=== PATIENT | male | born 1945 | race Caucasian/White ===

== ENCOUNTER 2018-08-03 06:20 | Inpatient (IN) | payer MEDICARE, OTHER ==
--- NOTE | ~2018-08-03 | OP ---
PATIENT NAME: LUDIN PARNELL MEDICAL RECORD: [id number] :43 LOCATION:D.M3 D.1204 ADMISSION DATE:08/03/18 SURGEON: MIKE ÁLVAREZ MD DATE OF OPERATION: 08/09/2018 PREOPERATIVE DIAGNOSES: 1. Dysphagia. 2. History of cerebrovascular accident. 3. Coronary artery disease. 4. Hypertension. 5. Hyperlipidemia. POSTOPERATIVE DIAGNOSES: 1. Dysphagia. 2. History of cerebrovascular accident. 3. Coronary artery disease. 4. Hypertension. 5. Hyperlipidemia. PROCEDURE: PEG tube placement. SURGEON: Mike Álvarez MD REPORT OF PROCEDURE: The patient's abdomen was prepped and draped in sterile fashion. An Olympus endoscope was advanced through the mouth and esophagus and into the stomach. We found an area on the left upper quadrant of the stomach to house our PEG tube. A total of 5 cc of 1% lidocaine with epinephrine was infused into the surrounding tissues. An Angiocath needle was brought through the skin into the gastric lumen. A wire was advanced through this and the wire was grasped with an Endosnare. We pulled this through the mouth and esophagus and affixed it to the PEG tube. The PEG was pulled through the mouth and esophagus and through the gastric wall until it rested in good position at 6 cm at the skin. The endoscope was readvanced into the stomach and we could see that the PEG was in good position with no sign of any bleeding. COMPLICATIONS: None. CONDITION: Stable. ANESTHESIA: TIVA. BLOOD LOSS: Minimal. TRANSINT:[id number] Voice Confirmation ID: [id number] DOCUMENT ID: [id number] MIKE ÁLVAREZ MD CC: [id number] DICTATION DATE: 08/09/181455 FUNERAL CAR DRIVER: 08/10/18 0048 ADM IN [facility] [address] [place] [address]
[~2018-08-03 06:20] MED LIST: ASPIRIN EC81 M1 PO; BETAPACE 80 MG80 MG PO; DIOVAN320 MG PO; HYDROCHLOROTHIA25 MG GT; HYDROCODONE/APAP PO; LIPITOR40 MG PO; LISINOPRIL10 MG PO; VIAGRA100 MG PO
[2018-08-03] MEDS ORDERED: COZAAR100 MG PO (06:28)
[2018-08-03 06:40] LABS: BASOPHILS 0.3 % (0-2); EOSINOPHILS 3.3 % (0-7); HEMATOCRIT 41.9 % (42.0-54.0); HEMOGLOBIN 14.1 g/dL (13.5-17.5); IMMATURE GRANULOCYTES 0.1 % (0-5); LYMPHOCYTES 27.4 % (15-50); MCH 30.8 pg (26.0-34.0); MCHC 33.7 g/dL (31.0-37.0); MCV 91.5 fL (80.0-100.0); MEAN PLATELET VOLUME 11.8 fL (7.4-10.4); MONOCYTES 8.7 % (2-11); NEUTROPHILS 60.2 % (40-80); PLATELET COUNT 223 10x3/uL (130-400); RBC 4.58 10x6/uL (4.20-6.10); RDW 14.2 % (11.5-14.5); WBC 7.2 10x3/uL (4.8-10.8)
[2018-08-03 06:49] LABS: APTT 29.9 SECONDS (22.8-39.4); INR 1.04 (0.85-1.17); PROTIME 13.1 SECONDS (11.6-15.0)
[2018-08-03 06:54] LABS: ALBUMIN 3.6 g/dL (3.4-5.0); ALKALINE PHOSPHATASE 112 U/L (46-116); ALT (SGPT) 42 U/L (10-68); BILIRUBIN - TOTAL 1.09 mg/dL (0.2-1.3); CALC OSMOLALITY 291 mosm/kg (275-300); CALCIUM 8.7 mg/dL (8.5-10.1); CARBON DIOXIDE 25.8 mmol/L (21.0-32.0); CHLORIDE - SERUM 107 mmol/L (98-107); CREATININE - SERUM 1.2 mg/dL (0.6-1.3); POTASSIUM - SERUM 4.4 mmol/L (3.5-5.1); PROTEIN - SERUM 7.6 g/dL (6.4-8.2); SODIUM 143 mmol/L (136-145); UREA NITROGEN 21 mg/dL (7-18); eGFR NON AFRICAN AMERICAN 63 mL/min (90-120)
[2018-08-03 06:57] LABS: GLUCOSE 162 mg/dL (74-106)
[2018-08-03 07:05] LABS: CREATINE KINASE 58 UL (21-232); MAGNESIUM - SERUM 1.9 mg/dL (1.8-2.4); PRO BNP 1221 pg/mL (0-125); TROPONIN-I < 0.017 ng/mL (0.000-0.060)
[2018-08-03 07:23] VITALS: BP 148/70
[2018-08-03 08:14] VITALS: BP 135/75
[2018-08-03 09:32] VITALS: BP 135/75; BMI 36.0
[2018-08-03 10:12] LABS: CREATINE KINASE 59 UL (21-232); TROPONIN-I < 0.017 ng/mL (0.000-0.060)
[2018-08-03 11:26] VITALS: BMI 35.9
[2018-08-03 11:53] VITALS: BP 149/70
[2018-08-03 15:56] VITALS: BP 166/75
[2018-08-03 17:01] LABS: CKMB 1.8 U/L (0.0-3.6); CREATINE KINASE 77 UL (21-232); TROPONIN-I < 0.017 ng/mL (0.000-0.060)
[2018-08-03 20:28] VITALS: BP 143/71
[2018-08-03 21:35] LABS: CKMB 1.5 U/L (0.0-3.6); CREATINE KINASE 76 UL (21-232); TROPONIN-I 0.026 ng/mL (0.000-0.060)
[2018-08-04] VITALS (24 sets, daily range): BP systolic 137–205; BP diastolic 79–165
[2018-08-04 01:26] LABS: BASOPHILS 0.4 % (0-2); EOSINOPHILS 2.2 % (0-7); HEMOGLOBIN 14.7 g/dL (13.5-17.5); IMMATURE GRANULOCYTES 0.1 % (0-5); LYMPHOCYTES 19.2 % (15-50); MCH 30.4 pg (26.0-34.0); MCHC 34.2 g/dL (31.0-37.0); MEAN PLATELET VOLUME 11.8 fL (7.4-10.4); MONOCYTES 10.2 % (2-11); NEUTROPHILS 67.9 % (40-80); PLATELET COUNT 211 10x3/uL (130-400); RBC 4.83 10x6/uL (4.20-6.10)
[2018-08-04 01:38] LABS: ALBUMIN 3.9 g/dL (3.4-5.0); BILIRUBIN - TOTAL 1.5 mg/dL (0.2-1.3); CALCIUM 9.3 mg/dL (8.5-10.1); CARBON DIOXIDE 26.7 mmol/L (21.0-32.0); CREATININE - SERUM 1.2 mg/dL (0.6-1.3); INR 1.09 (0.85-1.17); POTASSIUM - SERUM 3.7 mmol/L (3.5-5.1); PROTEIN - SERUM 8.2 g/dL (6.4-8.2); PROTIME 13.6 SECONDS (11.6-15.0)
[2018-08-04 01:39] LABS: D-DIMER-QUANTITATIVE 2.95 ug/mLFEU (0.20-0.54)
[2018-08-04 05:10] LABS: BASOPHILS 0.2 % (0-2); EOSINOPHILS 1.4 % (0-7); HEMATOCRIT 41.5 % (42.0-54.0); HEMOGLOBIN 14.1 g/dL (13.5-17.5); IMMATURE GRANULOCYTES 0.1 % (0-5); LYMPHOCYTES 13.4 % (15-50); MCH 30.3 pg (26.0-34.0); MCV 89.2 fL (80.0-100.0); MONOCYTES 7.9 % (2-11); PLATELET COUNT 172 10x3/uL (130-400); RBC 4.65 10x6/uL (4.20-6.10); WBC 8.5 10x3/uL (4.8-10.8)
[2018-08-04 05:11] LABS: CALC OSMOLALITY 293 mosm/kg (275-300); CALCIUM 8.9 mg/dL (8.5-10.1); CARBON DIOXIDE 32.7 mmol/L (21.0-32.0); CHLORIDE - SERUM 105 mmol/L (98-107); GLUCOSE 137 mg/dL (74-106); POTASSIUM - SERUM 3.6 mmol/L (3.5-5.1); SODIUM 145 mmol/L (136-145); UREA NITROGEN 20 mg/dL (7-18); eGFR NON AFRICAN AMERICAN 78 mL/min (90-120)
[2018-08-04 14:21] LABS: APPEARANCE CLEAR (CLEAR); BILIRUBIN NEGATIVE (NEGATIVE); COLOR STRAW (YELLOW); GLUCOSE NEGATIVE (NEGATIVE); KETONE NEGATIVE (NEGATIVE); NITRITE NEGATIVE (NEGATIVE); PROTEIN NEGATIVE (NEGATIVE); SPECIFIC GRAVITY 1.015 (1.005-1.020)
[2018-08-05] VITALS (24 sets, daily range): BP systolic 140–197; BP diastolic 85–137
[2018-08-05 03:57] LABS: BASOPHILS 0.1 % (0-2); EOSINOPHILS 0.3 % (0-7); HEMATOCRIT 40.9 % (42.0-54.0); HEMOGLOBIN 14.1 g/dL (13.5-17.5); IMMATURE GRANULOCYTES 0.1 % (0-5); LYMPHOCYTES 9.9 % (15-50); MCH 30.9 pg (26.0-34.0); MCHC 34.5 g/dL (31.0-37.0); MCV 89.7 fL (80.0-100.0); MEAN PLATELET VOLUME 11.6 fL (7.4-10.4); MONOCYTES 8.9 % (2-11); NEUTROPHILS 80.7 % (40-80); PLATELET COUNT 202 10x3/uL (130-400); RBC 4.56 10x6/uL (4.20-6.10); RDW 13.8 % (11.5-14.5); WBC 10.4 10x3/uL (4.8-10.8)
[2018-08-05 04:11] LABS: CALC OSMOLALITY 286 mosm/kg (275-300); CALCIUM 8.3 mg/dL (8.5-10.1); CARBON DIOXIDE 30.8 mmol/L (21.0-32.0); CHLORIDE - SERUM 104 mmol/L (98-107); CHOLESTEROL, TOTAL 115 mg/dL (0-200); GLUCOSE 136 mg/dL (74-106); HDL CHOLESTEROL 29 mg/dL (32-96); LDL CHOLESTEROL 67 mg/dL (0-100); LDL-HDL RATIO 2.3 ratio (1.5-3.5); POTASSIUM - SERUM 3.5 mmol/L (3.5-5.1); SODIUM 142 mmol/L (136-145); TRIGLYCERIDE 96 mg/dL (30-200); UREA NITROGEN 17 mg/dL (7-18); eGFR NON AFRICAN AMERICAN 78 mL/min (90-120)
[2018-08-06] VITALS (24 sets, daily range): BP systolic 114–177; BP diastolic 81–144
[2018-08-06 04:43] LABS: BASOPHILS 0.2 % (0-2); EOSINOPHILS 2.1 % (0-7); HEMATOCRIT 43.5 % (42.0-54.0); HEMOGLOBIN 14.8 g/dL (13.5-17.5); IMMATURE GRANULOCYTES 0.2 % (0-5); LYMPHOCYTES 15.4 % (15-50); MCH 30.5 pg (26.0-34.0); MCV 89.7 fL (80.0-100.0); MONOCYTES 11.4 % (2-11); NEUTROPHILS 70.7 % (40-80); PLATELET COUNT 200 10x3/uL (130-400); RBC 4.85 10x6/uL (4.20-6.10); RDW 13.7 % (11.5-14.5); WBC 10.2 10x3/uL (4.8-10.8)
[2018-08-06 04:57] LABS: CALC OSMOLALITY 288 mosm/kg (275-300); CALCIUM 8.4 mg/dL (8.5-10.1); CARBON DIOXIDE 33.2 mmol/L (21.0-32.0); CHLORIDE - SERUM 103 mmol/L (98-107); GLUCOSE 118 mg/dL (74-106); POTASSIUM - SERUM 3.4 mmol/L (3.5-5.1); SODIUM 143 mmol/L (136-145); UREA NITROGEN 21 mg/dL (7-18); eGFR NON AFRICAN AMERICAN 78 mL/min (90-120)
--- NOTE | 2018-08-06 23:57 | MORECARE ---
CASE MANAGEMENT DISCHARGE SUMMARY PATIENT: LUDIN PARNELL UNIT: [id number] ADM DATE: 08/03/18 AGE: 72 : [birth year] SEX: M ROOM/BED: D.2314 AUTHOR: JOSE ALBERTO BRENNER PHYSICIAN: REFERRING PHYSICIAN: CARMELINA SEVILLA MD DATE OF SERVICE: 08/06/18 Discharge Plan Patient Name: LUDIN PARNELL [facility] [facility] 1945 Planned Disposition: Inpatient Rehab Anticipated Discharge Date: Discharge Date: Expected LOS: Initial Reviewer: [email or web address] Initial Review Date: 08/03/2018 Generated: 08/07/18 12:56 am DCPIA - Discharge Planning Initial Assessment Updated by [email or web address]: Brandee Cardoso on 08/06/18 11:57 pm * Is the patient Alert and Oriented? Yes * How many steps to enter\exit or inside your home? * [facility] * Pharm[facility] * Preadmission Environment Home with Family * ADLs Independent * Equipment None * List name and contact numbers for known caregivers / representatives who currently or will assist patient after discharge: MATTY LÓPEZ [facility] [phone] * Verbal permission to speak to the caregivers and representatives has been obtained from the patient. N/A * Community resources currently utilized None * Additional services required to return to the preadmission environment? No * Can the patient safely return to the preadmission environment? Yes * Has this patient been hospitalized within the prior 30 days at any hospital? No Patient Name: LUDIN PARNELL Page 61501 at 2357 All edits/amendments must be made on the electronic document DICTATION DATE: 08/06/182355 FISH AND GAME CLUB MANAGER: ANEL 08/06/182355 RPT#: [id number] DC DATE: STATUS: ADM IN [facility] [address] [place] [address] END OF REPORT
[2018-08-07] VITALS (17 sets, daily range): BP systolic 117–163; BP diastolic 74–127
--- NOTE | 2018-08-07 00:10 | MORECARE ---
CASE MANAGEMENT DISCHARGE SUMMARY PATIENT: LUDIN PARNELL UNIT: [id number] ADM DATE: 08/03/18 AGE: 72 : 43 SEX: M ROOM/BED: D.2314 AUTHOR: ELIDIADOC PHYSICIAN: REFERRING PHYSICIAN: CARMELINA SEVILLA MD DATE OF SERVICE: 08/07/18 Discharge Plan Patient Name: LUDIN PARNELL [facility]:[place] : 1945 Planned Disposition: Inpatient Rehab Anticipated Discharge Date: Discharge Date: Expected LOS: Initial Reviewer: [email or web address] Initial Review Date: 08/03/2018 Generated: 08/07/18 1:09 am Comments DCP- Discharge Planning Updated by [email or web address]: Brandee Cardoso on 08/06/18 11:[address] Patient Name: LUDIN PARNELL Admission Status: ER Accout number: [id number] Admission Date: 08-03-2018 : 1945 Admission Diagnosis: Attending: CARMELINA SEVILLA Current LOS: 3 Anticipated DC Date: Planned Disposition: Inpatient Rehab Primary Insurance: MEDICARE A & B Discharge Planning Comments: CM met with patient's spouse (Kaitlynn). Patient is non-verbal currently but will smile. Kaitlynn stated that eventually she wants him to come to their home and she will provide for him. She also states that he needs therapy before discharge. She would like for him to go to inpatient Rehab. She states that she doesn't have any medical equipment at home. Uncertain as to what he will need as far as DME upon discharge. CM will continue to follow and assist as needed with discharge planning / needs. Ac/Dc Rewinder: Brandee Cardoso DCPIA - Discharge Planning Initial Assessment Updated by [email or web address]: Brandee Cardoso on 08/06/18 11:57 pm * Is the patient Alert and Oriented? Yes * How many steps to enter\exit or inside your home? * PCP [facility] * Pharm[facility] * Preadmission Environment Home with Family * ADLs Independent * Equipment None * List name and contact numbers for known caregivers / representatives who currently or will assist patient after discharge: KAITLYNN LÓPEZ - [facility] - [phone] * Verbal permission to speak to the caregivers and representatives has been obtained from the patient. N/A * Community resources currently utilized None * Additional services required to return to the preadmission environment? No * Can the patient safely return to the preadmission environment? Yes * Has this patient been hospitalized within the prior 30 days at any hospital? No Last DP export: 08/06/18 10:57 p Patient Name: LUDIN PARNELL Page 23163 at 0010 All edits/amendments must be made on the electronic document DICTATION DATE: 08/07/188 SLUG PRESS OPERATOR: DM 08/07/188 RPT#: [id number] DC DATE: STATUS: ADM IN [facility] [address] [place] [address] END OF REPORT
[2018-08-07 04:28] LABS: BASOPHILS 0.2 % (0-2); EOSINOPHILS 1.8 % (0-7); HEMATOCRIT 44.1 % (42.0-54.0); IMMATURE GRANULOCYTES 0.2 % (0-5); LYMPHOCYTES 15.5 % (15-50); MCH 30.7 pg (26.0-34.0); MCV 90.2 fL (80.0-100.0); MEAN PLATELET VOLUME 11.9 fL (7.4-10.4); MONOCYTES 12.2 % (2-11); NEUTROPHILS 70.1 % (40-80); PLATELET COUNT 209 10x3/uL (130-400); RBC 4.89 10x6/uL (4.20-6.10); RDW 13.6 % (11.5-14.5)
[2018-08-07 05:03] LABS: ANION GAP 9.3 mmol/L (8-16); CALCIUM 8.8 mg/dL (8.5-10.1); CARBON DIOXIDE 34.9 mmol/L (21.0-32.0); CREATININE - SERUM 1.1 mg/dL (0.6-1.3); POTASSIUM - SERUM 3.2 mmol/L (3.5-5.1)
--- NOTE | 2018-08-07 14:39 | CN ---
PATIENT NAME:LUDIN ALBERTO MEDICAL RECORD: [id number] : 43 LOCATION:BARNEYD.2314 ADMIT DATE: 08/03/18 ACCOUNT: [id number] CONSULTING PHYSICIAN: FAYE BENNETT MD REFERRING PHYSICIAN: CARMELINA SEVILLA MD DATE OF CONSULTATION: 08/04/2018 CARDIOLOGY CONSULT DIAGNOSES: 1. Acute CVA. 2. Atrial fibrillation. 3. Hypertension. 4. Hyperlipidemia. 5. Cardiomyopathy, congestive heart failure, chronic systolic dysfunction. 6. Coronary artery disease. HISTORY: Mr. Alberto presents with generalized weakness. He was found to be in atrial fibrillation. He was treated for heart failure medically with diuresis. His sotalol was continued for the atrial fibrillation, but last night, he had an acute CVA. Thrombolytics were not given. He is now brought to the unit with stroke symptoms. From a cardiac standpoint, he had an echocardiogram showing an ejection fraction in the 30% range. He complained of no anginal symptomatology. He did not complain of atrial fibrillation as well. PHYSICAL EXAMINATION: GENERAL APPEARANCE: Well-nourished, well-developed, appears stated age. Level of distress, comfortable. PSYCHIATRIC: Mental status, alert, normal affect. Orientation, oriented to time, place and person. EYES: Lids and conjunctiva, noninjected. No discharge, no pallor. ENT: Lips, teeth, gums, normal dentition. Oropharynx, no cyanosis, no pallor. NECK: Carotid arteries, bilateral normal upstroke, no bruits, no thrills. JUGULAR VEINS: No jugular venous pressure or distention. CERVICAL LYMPH NODES: Nontender, nonenlarged. THYROID: Not enlarged. Nontender. No nodules. LUNGS: Respiratory effort, unlabored. CHEST: Normal curvature. No thoracic deformity. No chest wall tenderness. Percussion, resonant. Auscultation, clear. No wheezes, no rales, no rhonchi. CARDIOVASCULAR: Precordial exam, nondisplaced. No heaves or pericardial thrills. Rate and rhythm, regular. Heart sounds, normal S1, normal S2. No S3, no gallop, no rub. Systolic murmur, not heard. Diastolic murmur, not heard. EXTREMITIES: No cyanosis, no edema. Peripheral pulses, full and equal in all extremities, except as noted. No bruits appreciated. ABDOMEN: Soft, nondistended. Normal aorta. No bruit. Nontender. No masses. Liver, nontender, no hepatomegaly. Spleen, nontender, no splenomegaly. MUSCULOSKELETAL: No joint tenderness. No joint swelling. No erythema. NEUROLOGICAL: Normal gait, normal strength, normal tone. SKIN: Warm and dry. OVERALL IMPRESSION: 1. Atrial fibrillation. He has a history of atrial fibrillation, for which he was on sotalol, but was not on any anticoagulation. Last time we saw him, he was in sinus rhythm, but he does not keep frequent follow ups with us. It has been quite a while since we have seen him, so we do not know the duration of the CONSULT REPORT [id number] LUDIN ALBERTO atrial fibrillation. At this time, he is rate controlled. 2. Cardiomyopathy. He does have an ejection fraction in the 30% range. This is new. Previously, he had a normal ejection fraction. 3. Coronary artery disease, status post coronary artery bypass graft surgery in 1999. He has not had a cardiac intervention since then. He had no ischemic symptomatology, hence he is stable from that standpoint. 4. CVA. This is obviously his main problem. It is no doubt embolic from his atrial fibrillation, but he is out of the window for thrombolytics at this time. TRANSINT:[id number] Voice Confirmation ID: [id number] DOCUMENT ID: [id number] FAYE BENNETT MD at 1439 CC: [id number] DICTATION DATE: 08/04/18 1340 WOODWORKING MACHINE SETTER: 08/04/18 193 ADM IN [place] [id number] [place] [id number]
--- NOTE | 2018-08-07 14:39 | EC ---
PATIENT:LUDIN PARNELL DATE OF SERVICE: 08/03/18 SEX: M MEDICAL RECORD: [id number] DATE OF : 43 LOCATION:[facility] AGE OF PATIENT: 72 ADMISSION DATE: 08/03/18 REFERRING PHYSICIAN: INTERPRETING PHYSICIAN: FAYE RUSSELL MD ECHOCARDIOGRAM REPORT ECHO CHARGES 4 ECHO COMPLETE Date: 08/03/18 CLINICAL DIAGNOSIS: CHF ECHOCARDIOGRAPHIC MEASUREMENTS (adult normal given) AC root (d.<3.7cm) 3.6 cm LV Septum d (<1.2 cm> 1.2 cm Valve Excursion 1.3 cm LV Septum (systole) 1.3 cm Left Atria (s.<4.0cm> 3.9 cm LVPW d(<1.2cm) 1.1 cm RV (d.<2.3cm) 2.8 cm LVPW (sytole) 1.6 cm LV diastole(<5.6CM) 6.2 cm MV E-F(>70mm/sec) cm LV systole 5.4 cm LVOT Diameter 1.9 cm MV exc.(>10mm) cm Est.ejection fraction (50-75%) % DOPPLER: LVIT cm/sec A 33 cm/sec E 76 cm/sec LA cm/sec RVSP 27.4 mmHg LVOT 105 cm/sec AOP1/2T m/s Asc. Ao 180 cm/sec RVOT 59 cm/sec RA cm/sec PA 79 cm/sec AV Gradient Peak 13.0 mmHg AV Mean 8.5 mmHg AV Area 1.4 cm MV Gradient Peak 5.4 mmHg MV Mean 1.9 mmHg MV Area cm COMMENTS: Press Tender Smoke Signal: Davy [facility] Tractor Trailer Moving Van Driver: 1 Dr. Russell TAPE# PACS Pericardial Effusion N DATE OF SERVICE: 08/03/2018 FINDINGS: 1. Left ventricular chamber size is mildly dilated. Left ventricular systolic function is mildly reduced. Overall ejection fraction is 35% to 40%. 2. Left atrium, right atrium, and right ventricular chamber sizes are mildly dilated. Left atrium measures 4.2 cm. 3. Valvular structures have normal structure and motion. 4. Doppler interrogation reveals mild tricuspid regurgitation. No other valvular insufficiency or stenosis. Pulmonary systolic pressure is estimated at ECHOCARDIOGRAM REPORT [id number] LUDIN PARNELL 28 mmHg. 5. No evidence of pericardial effusion or left ventricular thrombus. TRANSINT:[id number] Voice Confirmation ID: [id number] DOCUMENT ID: [id number] FAYE RUSSELL MD at 1439 CC: [id number] DICTATION DATE: 08/04/18 1055 CHIEF MEDICAL PHYSICIST: 08/04/18 1224 ADM IN [facility] [address] [place] [address]
[2018-08-08 00:45] VITALS: BP 124/82
[2018-08-08 05:10] VITALS: BP 147/96
[2018-08-08 06:32] LABS: BASOPHILS 0.2 % (0-2); HEMATOCRIT 46.7 % (42.0-54.0); HEMOGLOBIN 15.9 g/dL (13.5-17.5); IMMATURE GRANULOCYTES 0.2 % (0-5); LYMPHOCYTES 12.7 % (15-50); MCH 30.8 pg (26.0-34.0); MCV 90.3 fL (80.0-100.0); MONOCYTES 10.5 % (2-11); NEUTROPHILS 74.4 % (40-80); PLATELET COUNT 215 10x3/uL (130-400); RBC 5.17 10x6/uL (4.20-6.10); RDW 13.7 % (11.5-14.5); WBC 12.4 10x3/uL (4.8-10.8)
[2018-08-08 06:39] LABS: ANION GAP 12.1 mmol/L (8-16); CALCIUM 8.7 mg/dL (8.5-10.1); CARBON DIOXIDE 31.3 mmol/L (21.0-32.0); CREATININE - SERUM 1.1 mg/dL (0.6-1.3); POTASSIUM - SERUM 3.4 mmol/L (3.5-5.1)
[2018-08-08 08:11] VITALS: BP 121/82
[2018-08-08 12:09] VITALS: BP 133/86
[2018-08-08 14:00] VITALS: BP 174/100
[2018-08-08 18:51] LABS: APPEARANCE HAZY (CLEAR); BILIRUBIN NEGATIVE (NEGATIVE); COLOR YELLOW (YELLOW); GLUCOSE NEGATIVE (NEGATIVE); KETONE NEGATIVE (NEGATIVE); NITRITE NEGATIVE (NEGATIVE); PROTEIN TRACE mg/dL (NEGATIVE); UROBILINOGEN NORMAL (NORMAL)
[2018-08-08 18:52] LABS: BACTERIA FEW /hpf (NONE SEEN); EPITHELIAL CELLS NSEEN /hpf (0-5); WHITE CELLS - URINE 0-5 /hpf (0-5)
[2018-08-08 20:47] VITALS: BP 129/80
[2018-08-09] VITALS (7 sets, daily range): BP systolic 108–165; BP diastolic 67–87
[2018-08-09 07:03] LABS: CALC OSMOLALITY 290 mosm/kg (275-300); CALCIUM 8.6 mg/dL (8.5-10.1); CARBON DIOXIDE 32.2 mmol/L (21.0-32.0); CHLORIDE - SERUM 103 mmol/L (98-107); CREATININE - SERUM 0.9 mg/dL (0.6-1.3); GLUCOSE 131 mg/dL (74-106); POTASSIUM - SERUM 3.9 mmol/L (3.5-5.1); SODIUM 142 mmol/L (136-145); UREA NITROGEN 30 mg/dL (7-18); eGFR NON AFRICAN AMERICAN 88 mL/min (90-120)
[2018-08-09 07:08] LABS: BASOPHILS 0.2 % (0-2); EOSINOPHILS 1.4 % (0-7); HEMATOCRIT 45.4 % (42.0-54.0); HEMOGLOBIN 15.4 g/dL (13.5-17.5); IMMATURE GRANULOCYTES 0.3 % (0-5); MCHC 33.9 g/dL (31.0-37.0); MCV 91.5 fL (80.0-100.0); MEAN PLATELET VOLUME 12.5 fL (7.4-10.4); MONOCYTES 12.4 % (2-11); NEUTROPHILS 72.7 % (40-80); PLATELET COUNT 196 10x3/uL (130-400); RBC 4.96 10x6/uL (4.20-6.10); RDW 13.7 % (11.5-14.5); WBC 11.8 10x3/uL (4.8-10.8)
[2018-08-10 07:03] LABS: BASOPHILS 0.1 % (0-2); EOSINOPHILS 0.7 % (0-7); HEMOGLOBIN 16.1 g/dL (13.5-17.5); IMMATURE GRANULOCYTES 0.5 % (0-5); LYMPHOCYTES 10.1 % (15-50); MCH 30.9 pg (26.0-34.0); MCHC 33.5 g/dL (31.0-37.0); MCV 92.1 fL (80.0-100.0); NEUTROPHILS 73.6 % (40-80); PLATELET COUNT 213 10x3/uL (130-400); RBC 5.21 10x6/uL (4.20-6.10); RDW 13.8 % (11.5-14.5)
[2018-08-10 07:11] LABS: WBC 14.9 10x3/uL (4.8-10.8)
[2018-08-10 07:13] LABS: ANION GAP 11.2 mmol/L (8-16); CALCIUM 8.8 mg/dL (8.5-10.1); MAGNESIUM - SERUM 2.4 mg/dL (1.8-2.4); POTASSIUM - SERUM 4.2 mmol/L (3.5-5.1)
[2018-08-10 07:16] LABS: CREATININE - SERUM 1.3 mg/dL (0.6-1.3)
[2018-08-10 08:00] VITALS: BP 181/98
[2018-08-10 12:43] VITALS: BP 179/109
[2018-08-10 20:00] VITALS: BP 172/79
[2018-08-11] VITALS (30 sets, daily range): BP systolic 60–137; BP diastolic 30–81
[2018-08-11 04:46] LABS: BASOPHILS 0.1 % (0-2); EOSINOPHILS 0 % (0-7); HEMATOCRIT 48.7 % (42.0-54.0); HEMOGLOBIN 15.6 g/dL (13.5-17.5); IMMATURE GRANULOCYTES 0.5 % (0-5); LYMPHOCYTES 8.2 % (15-50); MCH 31.5 pg (26.0-34.0); MEAN PLATELET VOLUME 12.3 fL (7.4-10.4); MONOCYTES 8.1 % (2-11); NEUTROPHILS 83.1 % (40-80); PLATELET COUNT 233 10x3/uL (130-400); RBC 4.95 10x6/uL (4.20-6.10); RDW 13.5 % (11.5-14.5); WBC 14.7 10x3/uL (4.8-10.8)
[2018-08-11 04:50] LABS: MCV 98.4 fL (80.0-100.0)
[2018-08-11 05:03] LABS: ALBUMIN 2.6 g/dL (3.4-5.0); ANION GAP 6.7 mmol/L (8-16); BILIRUBIN - TOTAL 1.29 mg/dL (0.2-1.3); CALCIUM 9.1 mg/dL (8.5-10.1); CARBON DIOXIDE 39.4 mmol/L (21.0-32.0)
[2018-08-11 05:07] LABS: CREATININE - SERUM 2.8 mg/dL (0.6-1.3); POTASSIUM - SERUM 5.1 mmol/L (3.5-5.1)
--- NOTE | 2018-08-12 09:10 | MORECARE ---
CASE MANAGEMENT DISCHARGE SUMMARY PATIENT: LUDIN PARNELL UNIT: [id number] ADM DATE: 08/03/18 AGE: 72 : 43 SEX: M ROOM/BED: D.2307 AUTHOR: ELIDIA,DOC PHYSICIAN: REFERRING PHYSICIAN: CARMELINA SEVILLA MD DATE OF SERVICE: 08/12/18 Discharge Plan Patient Name: LUDIN PARNELL Facility[facility]:[place] : 1945 Planned Disposition: Inpatient Rehab Anticipated Discharge Date: Discharge Date: 08/11/2018 Expected LOS: Initial Reviewer: [email or web address] Initial Review Date: 08/03/2018 Generated: 08/12/18 10:10 am DCP- Discharge Planning Updated by [email or web address]: Brandee Cardoso on 08/06/18 11:[address] Patient Name: LUDIN PARNELL Admission Status: ER Accout number: [id number] Admission Date: 08-03-2018 : 1945 Admission Diagnosis: Attending: CARMELINA SEVILLA Current LOS: 3 Anticipated DC Date: Planned Disposition: Inpatient Rehab Primary Insurance: MEDICARE A & B Discharge Planning Comments: CM met with patient's spouse (Kaitlynn). Patient is non-verbal currently but will smile. Kaitlynn stated that eventually she wants him to come to their home and she will provide for him. She also states that he needs therapy before discharge. She would like for him to go to inpatient Rehab. She states that she doesn't have any medical equipment at home. Uncertain as to what he will need as far as DME upon discharge. CM will continue to follow and assist as needed with discharge planning / needs. Curing Press Operator: Brandee Cardoso DCPIA - Discharge Planning Initial Assessment Updated by [email or web address]: Brandee Cardoso on 08/06/18 11:57 pm * Is the patient Alert and Oriented? Yes * How many steps to enter\exit or inside your home? * PCP [facility] * Pharm[facility] * Preadmission Environment Home with Family * ADLs Independent * Equipment None * List name and contact numbers for known caregivers / representatives who currently or will assist patient after discharge: KAITLYNN LÓPEZ - [facility] - [phone] * Verbal permission to speak to the caregivers and representatives has been obtained from the patient. N/A * Community resources currently utilized None * Additional services required to return to the preadmission environment? No * Can the patient safely return to the preadmission environment? Yes * Has this patient been hospitalized within the prior 30 days at any hospital? No Last DP export: 08/06/18 11:09 p Patient Name: LUDIN PARNELL Page 81995 at 0910 All edits/amendments must be made on the electronic document DICTATION DATE: 08/12/18909 DATA WAREHOUSING MANAGER: DM 08/12/18909 RPT#: [id number] DC DATE:08/11/18 STATUS: DIS IN [facility] [address] [place] [address] END OF REPORT
== END 2018-08-11 14:43 | DRG 64 ==
LOC: D.ER 06:20 → D.M2 07:16 → D.ICU 08-04 13:45 → D.M3 08-07 15:56 → D.M2 08-10 14:48 → D.ICU 08-11 05:00
PROVIDERS: Emergency Medicine; Family Medicine; Surgery; ADMIT Internal Medicine Nephrology
PROC: 0DH63UZ Insertion of Feeding Device into Stomach, Percutaneous Approach (ICD-10-PCS; principal; 2018-08-09 14:01)
PROC: 05HY33Z Insertion of Infusion Device into Upper Vein, Percutaneous Approach (ICD-10-PCS; 2018-08-11)
PROC: 5A1935Z Respiratory Ventilation, Less than 24 Consecutive Hours (ICD-10-PCS; 2018-08-11)
PROC: 0BH17EZ Insertion of Endotracheal Airway into Trachea, Via Natural or Artificial Opening (ICD-10-PCS; 2018-08-11)
DX: I63.9 Cerebral infarction, unspecified (principal); J96.01 Acute respiratory failure with hypoxia; I50.23 Acute on chronic systolic (congestive) heart failure; N17.9 Acute kidney failure, unspecified; I42.9 Cardiomyopathy, unspecified; I62.9 Nontraumatic intracranial hemorrhage, unspecified; J90 Pleural effusion, not elsewhere classified; G81.01 Flaccid hemiplegia affecting right dominant side; R47.01 Aphasia; I16.0 Hypertensive urgency; R06.09 Other forms of dyspnea; I25.10 Atherosclerotic heart disease of native coronary artery without angina pectoris; I45.9 Conduction disorder, unspecified; Z72.89 Other problems related to lifestyle; I48.91 Unspecified atrial fibrillation; R13.10 Dysphagia, unspecified; Z95.5 Presence of coronary angioplasty implant and graft; Z95.1 Presence of aortocoronary bypass graft; E78.5 Hyperlipidemia, unspecified

== ENCOUNTER 2018-08-04 01:37 | Emergency (ER) | payer MEDICARE, OTHER ==
[~2018-08-04 01:37] MED LIST changes: +COZAAR100 MG PO
== END 2018-08-04 02:18 | disposition home or self-care (01) ==
LOC: D.ER 01:37
DX: I63.9 Cerebral infarction, unspecified (principal); G81.91 Hemiplegia, unspecified affecting right dominant side; R41.0 Disorientation, unspecified